=== PATIENT | female | born 1955 | race Caucasian/White ===

== ENCOUNTER 2024-08-04 16:44 | Emergency (ER) | payer MEDICARE, SELFPAY ==
[2024-08-04 16:47] VITALS: BP 155/90
--- NOTE | 2024-08-04 19:03 | ED.MUSCINJ ---
HPI-Injury
General
Chief Complaint: Musculo-Skeletal Complaint
Source: patient and family (Daughter at bedside)
Exam Limitations: none
Time Seen by Provider: 08/04/24 17:40
Nursing documentation reviewed up to this point in time: agreed with
History of Present Illness-Injury
Initial Injury comments:
69-year-old female with history of vascular dementia, A-fib on Xarelto, 'bad' osteoarthritis in knee, told she needs a knee replacement, lives with her daughter who is her POA and is at bedside presents for sudden onset of pain and swelling of left
knee since 230 this afternoon.
This happened to her once before and she had the knee drained for blood by Dr. Ortiz and was told to hold her Xarelto for 1 day.
Patient does not recall injuring her knee but daughter states she has dementia and may not remember. Patient states pain is severe
Past History
Past History
ED Past Medical History: Arrthythmia (afib on Xarelto) and Other (vascular dementia)
Social History
Tobacco: Non-smoker
Alcohol: None
Personal:
Living: with family
Review of Systems
Review of Systems
Allergies reviewed?: Yes
All Other Systems: ROS reviewed and negative except as documented in HPI and ROS
Constitutional: Denies fever
Respiratory: Denies trouble breathing
Cardiac: Denies chest pain
ABD/GI: Denies abdominal pain or nausea
Musculoskeletal: Reports other (pain and swelling left knee)
Skin: Reports no symptoms
Phy Exam
Physical Exam
Physical Exam:
GENERAL: No acute distress. A&Ox3.
CONSTITUTIONAL: Afebrile.
EYES: clear, conjunctivae normal
ENMT: moist mucus membranes
RESPIRATORY: Regular respirations, nonlabored, lungs clear.
CARDIOVASCULAR: Regular rate and rhythm, no murmurs, no rubs.
GI: Soft, nontender
MUSCULOSKELETAL: Significant L knee swelling and pain. Obvious effusion. Well perfused.
SKIN: Warm, dry, pink
PSYCH: Anxious mood and affect. Well kept, interactive and appropriate
NEUROLOGIC: Awake, alert and oriented. No focal neurological deficits
Injury Course
Orders/Labs/Results
Orders:
Orders
08/04/24 19:03
Knee Immobilizer Left-Treatmen ONCE
Procedures
Incision/Drainage/Joint Aspiration
Left Lateral Knee:
Anethesia: 1% Lidocaine with Epi
Preparation: cleaned with alcohol wipe
Type of procedure: aspiration
Nature of site: other (hemarthrosis)
How much fluid was obtained?: number in mls (75)
Fluid description: bloody
Treatment: bandaid applied
Additional information:
yimi wrap applied by this examiner, knee immobilizer applied by nursing staff
MDM/Problems Addressed
Differential Diagnosis Includes:
hemarthrosis, osteoarthritis with effusion
MDM/Problems Addressed:
69-year-old female with history of vascular dementia, A-fib on Xarelto, 'bad' osteoarthritis in knee, told she needs a knee replacement, lives with her daughter who is her POA and is at bedside presents for sudden onset of pain and swelling of left
knee since 230 this afternoon.
This happened to her once before and she had the knee drained for blood by Dr. Ortiz and was told to hold her Xarelto for 1 day.
Patient does not recall injuring her knee but daughter states she has dementia and may not remember. Patient states pain is severe
Knee drained for 75 mL fresh blood. Band-Aid and Yimi wrap applied, knee immobilizer applied
She has appointment with orthopedics scheduled for Wednesday (2 days)
Pt states pain much relieved
Pt tolerated procedure well.
Knee immobilizer applied, good distal N/V status
DC'd via wheelchair
*Critical Care Note
Total Time (30-74mins, 75-104mins- exclusive of procedures): Not Applicable
ED Attending Note
-
Portions of this chart may have been created with voice recognition software.� Occasional wrong word or��sound alike� substitutions may have occurred due to the inherent limitations of voice recognition software.
Discharge Plan
Departure
Patient Disposition: Home (Routine Discharge)
Date of Disposition: 08/04/24
Time of Disposition: 19:11
Patient with high blood pressure during this ER visit?: No
Condition: Good
Discharge Problem:
Hemarthrosis of left knee
Instructions: Hemarthrosis (DC), Using Cold for Pain, Arthrocentesis
Referrals:
Khai Ortiz MD [Active] - Keep scheduled appt
UNKNOWN - PT NOT,INTERVIEWE [Family Provider] -
Activity Restrictions/Additional Instructions:
As we discussed, Tylenol 1000 mg up to 3 times a day as needed for pain.
Wear the knee immobilizer for 2 days to force yourself to rest the knee joint.
Hold Xarelto tomorrow then resume Wednesday
Wear the yimi wrap. You can open/remove the knee immobilizer when at rest and apply cold compress to the knee 20 minutes off and on today and tomorrow.
Use your walker until further instructed by your orthopedic doctor Wednesday.
Interventions
Interventions:
*Risk Screen - Suicide Last Done: 08/04/24 17:59
*General Assessment Last Done: 08/04/24 16:47
*Neglect/Abuse Screening Last Done: 08/04/24 17:59
*ED- Fall Risk Assessment Last Done: 08/04/24 17:59
*ED COVID-19 Vaccine History Last Done: 08/04/24 17:59
*Nursing Disposition Last Done: 08/04/24 19:27
ED-Musculoskeletal Assessment Last Done: 08/04/24 18:01
Discharge Date and Time
Discharge Date/Time: 08/04/24 19:28
Print Language: LATVIAN
== END 2024-08-04 19:28 | disposition home or self-care (01) ==
LOC: EMR 16:44
PROVIDERS: EMERGENCY PHYSICIAN Student in an Organized Health Care Education/Training Program
DX: M25.062 Hemarthrosis, left knee (principal); I48.91 Unspecified atrial fibrillation; F01.50 Vascular dementia, unspecified severity, without behavioral disturbance, psychotic disturbance, mood disturbance, and anxiety; M17.12 Unilateral primary osteoarthritis, left knee; Z79.01 Long term (current) use of anticoagulants
CPT/HCPCS: 99282; 29505